=== PATIENT | female | born 1950 | race Caucasian/White ===

== ENCOUNTER 2016-04-22 19:02 | Emergency (ER) | payer OTHER ==
[~2016-04-22] VITALS: Ht 160 cm; Wt 67.4 kg
[2016-04-22 19:10] VITALS: TEMP 37; Ht 160 cm; Wt 67.4 kg
[2016-04-22] MEDS ORDERED: ACETAMINOPHEN 500 MG TAB PO STA (19:56)
[2016-04-22] MEDS ORDERED: IBUPROFEN 200 MG TAB PO STA (19:56)
--- NOTE | 2016-04-22 19:56 | EMERGENCY ROOM VISIT NOTE ---
History Report prepared by Blaire: Rosales Muñiz Under the Supervision of: Dr. Kasi Mac M.D. First contact with patient: 19:43 Chief Complaint: ILLNESS Stated Complaint: PAIN IN RIGHT SIDE OF NECK History of Present Illness The patient is a 65 year old female who presents to the Emergency Room with complaints of intermittent left sided neck pain that started early this morning. This pain is an 8/10 in severity. Yesterday, the patient noticed that her neck was stiff. She thought she may have slept wrong. The patient is currently being treated for bronchitis. She denies chest pain, shortness of breath, fevers, or any additional associated symptoms. Source of History: patient Onset: Early this morning Position: neck Symptom Intensity: 8/10 Timing: intermittent Modifying Factors (Relieving): other (None ) Associated Symptoms: No SOB, No chest pain, No fevers Review of Systems See HPI for pertinent positives & negatives. A total of 10 systems reviewed and were otherwise negative. Past Medical & Surgical Medical Problems: (1) Appendicitis Surgical Problems: (1) History of cholecystectomy Family History FH: cancer FH: gallbladder disease FH: heart disease FH: hypertension Social History Smoking Status: Former Smoker Alcohol Use: occasionally Drug Use: none Marital Status: Housing Status: lives with significant other Occupation Status: unemployed Current/Historical Medications Scheduled Atorvastatin (Lipitor), 10 MG PO QPM Dexlansoprazole (Dexilant), 30 MG PO QAM Fluoxetine (Prozac), 20 MG PO DAILY Lansoprazole (Prevacid), 30 MG PO DAILY Multivitamins/Minerals (Mvi With Minerals), 1 TAB PO DAILY Scheduled PRN Lorazepam (Ativan), 0.5 MG PO DAILY PRN for Anxiety [Sleep Aide], 2 TABS PO HS PRN for Sleep Allergies Coded Allergies: Codeine (Verified Allergy, Severe, ITCHING/IRAHETA, 04/22/16) Hydrocodone (Verified Allergy, Severe, IRAHETA, 04/22/16) Phenyltoloxamine (Verified Allergy, Severe, IRAHETA, 04/22/16) Physical Exam Vital Signs Date Time Temp Pulse Resp B/P Pulse Ox O2 Delivery O2 Flow Rate FiO2 04/22/16 22:13 66 16 161/97 95 Room Air 04/22/16 19:10 37.0 85 18 142/100 96 Room Air Physical Exam CONSTITUTIONAL: Mild painful distress. HEENT: No icterus, moist mucous membranes NECK: Moderate left sided neck tenderness. No visible abnormalities. No meningismus, trachea is midline. CARDIOVASCULAR: Regular rate, normal perfusion RESPIRATORY: Unlabored breathing. Clear to auscultation. GASTROINTESTINAL: Non-tender GENITOURINARY: No flank tenderness MUSCULOSKELETAL: Full range of motion NEUROLOGIC: No acute gross focal deficits. PSYCHIATRIC: Normal affect SKIN: Normal for ethnicity. Medical Decision & Procedures ER Provider Diagnostic Interpretation: CT results as stated below per my review and radiologist interpretation. BILATERAL CAROTID DOPPLER STUDY HISTORY: Mental status change left neck pain COMPARISON: None. TECHNIQUE: Real-time, grayscale, and color Doppler sonography of the carotid arteries was performed. Imaging reviewed in the transverse and longitudinal planes. All measurements were calculated based on NASCET criteria. FINDINGS: Antegrade flow is seen in the bilateral vertebral arteries. The brachial pressures are hemodynamically similar. Mild plaque dimension bilaterally The peak systolic velocity within the right ICA is 57. The right systolic ratio is 0.77. The peak systolic velocity within the left ICA is 49. The left systolic ratio is 0.59. IMPRESSION: No hemodynamically significant stenosis seen within the carotid arteries. Electronically signed by: Sumeet Baron M.D. 04/22/2016 9:43 PM Dictated Date/Time: 04/22/2016 9:43 PM Laboratory Results Test 04/22/16 20:15 04/22/16 20:21 Troponin I < 0.015 ng/ml (0-0.045) Bedside Hemoglobin 15.3 g/dl (12.0-16.0) Bedside Hematocrit 45 % (37-47) Bedside Sodium 142 mEq/L (135-144) Bedside Potassium 3.5 mEq/L (3.3-5.0) Bedside Chloride 103 mEq/L (101-112) Bedside Total CO2 24 mEq/l (24-31) Anion Gap 19.0 mmol/L (16-25) Bedside Blood Urea Nitrogen 15 mg/dl (7-18) Bedside Creatinine 0.6 mg/dl (0.6-1.3) Bedside Glucose (other) 122 mg/dl (70-99) Bedside Ionized Calcium (Shantanu) 1.15 mmol/l (1.12-1.32) Labs reviewed by ED physician. Medications Administered Medications (Trade) Dose Ordered Sig/Makenzie Route Start Time Stop Time Status Last Admin Dose Admin Acetaminophen (Tylenol Tab) 1,000 mg NOW STAT PO 04/22/16 19:56 04/22/16 19:59 DC 04/22/16 20:42 1,000 MG Ibuprofen (Advil Tab) 400 mg NOW STAT PO 04/22/16 19:56 04/22/16 19:59 DC 04/22/16 20:41 400 MG ECG Indication: other (Neck pain ) Rate (beats per minute): 81 Rhythm: sinus rhythm Findings: no ectopy, other (Normal axis, Non specific ST findings ) ED Course 1944: Past medical records reviewed. The patient was evaluated in room A12B. A complete history and physical examination was performed. 1955: Ordered Advil Tablet 400 mg PO, Tylenol Tablet 1,000 mg PO. 1999: Ordered Tramadol HCL 1 homepack PO. 2156: Upon reexamination the patient is resting more comfortably. I discussed results and treatment plan with the patient. She verbalizes agreement and understanding. The patient is ready for discharge. Medical Decision Differential diagnoses include but are not limited to; musculoskeletal strain, carotid dissection, atypical chest pain. 65-year-old presents into the emergency room with nontraumatic left sided mild to moderate lateral neck discomfort. Full range of motion of neck. No tenderness into facial or cranial area. No clear ameliorating or exacerbating factors. No chest pain or shortness of breath. Carotid ultrasound normal. Patient comfortable on reexamination with Tylenol Motrin prior to discharge. Impression Primary Impression: Neck pain Scribe Attestation The scribe's documentation has been prepared under my direction and personally reviewed by me in its entirety. I confirm that the note above accurately reflects all work, treatment, procedures, and medical decision making performed by me. Departure Information Dispostion Home / Self-Care Referrals Lilian Pizano M.D. (PCP) Forms HOME CARE DOCUMENTATION FORM, IMPORTANT VISIT INFORMATION, WORK / SCHOOL INSTRUCTIONS Patient Instructions My [facility] Additional Instructions Tylenol 650 mg and Motrin 600 mg every 6 hours as needed for pain
[2016-04-22] MEDS ORDERED: TRAMADOL HCL 50 MG HOME PACK PO ONE (20:00)
[2016-04-22 20:31] LABS: ISTAT CREATININE 0.6 mg/dl (0.6-1.3); ISTAT HEMOGLOBIN 15.3 g/dl (12.0-16.0); ISTAT IONIZED CALCIUM 1.15 mmol/l (1.12-1.32)
[2016-04-22] MEDS ORDERED: ATOR10TA88 PO (20:40)
[2016-04-22] MEDS ORDERED: SLEEP AIDE PO (20:40)
[2016-04-22] MEDS ORDERED: LANS30CA12 PO (20:40)
[2016-04-22] MEDS ORDERED: LORA-741 PO (20:40)
[2016-04-22] MEDS ORDERED: DEXL30CA5 PO (20:40)
[2016-04-22] MEDS ORDERED: MULT-513 PO (20:40)
[2016-04-22] MEDS ORDERED: FLUO20CA35 PO (20:40)
--- NOTE | 2016-04-22 21:45 | DIAGNOSTIC IMAGING REPORT ---
BILATERAL CAROTID DOPPLER STUDY HISTORY: Mental status change left neck pain COMPARISON: None. TECHNIQUE: Real-time, grayscale, and color Doppler sonography of the carotid arteries was performed. Imaging reviewed in the transverse and longitudinal planes. All measurements were calculated based on NASCET criteria. FINDINGS: Antegrade flow is seen in the bilateral vertebral arteries. The brachial pressures are hemodynamically similar. Mild plaque dimension bilaterally The peak systolic velocity within the right ICA is 57. The right systolic ratio is 0.77. The peak systolic velocity within the left ICA is 49. The left systolic ratio is 0.59. IMPRESSION: No hemodynamically significant stenosis seen within the carotid arteries. Electronically signed by: Sumeet Baron M.D. 04/22/2016 9:43 PM Dictated Date/Time: 04/22/2016 9:43 PM
[2016-04-22 22:13] VITALS: BP 161/97; PULSE 66; O2SAT 95
[2016-04-22] MEDS ORDERED: TRAMADOL HCL 50 MG HOME PACK ONE (22:13)
== END 2016-04-22 22:20 | disposition home or self-care (01) ==
LOC: C.EDB 19:03 → C.EDA 22:20
DX: M54.2 Cervicalgia (principal); Z82.49 Family history of ischemic heart disease and other diseases of the circulatory system; Z87.891 Personal history of nicotine dependence

== ENCOUNTER → 2016-08-23 | Outpatient (CLI) | payer OTHER ==
[~2016-08-23] MED LIST: ATOR10TA82 PO; DEXL30CA5 PO; FLUO20CA35 PO; LANS30CA12 PO; LORA-741 PO; MULT-513 PO; SLEEP AIDE PO
--- NOTE | 2016-08-23 14:15 | DIAGNOSTIC IMAGING REPORT ---
CHEST 2 VIEWS ROUTINE CLINICAL HISTORY: COUGH R05 COMPARISON STUDY: No previous studies for comparison. FINDINGS: The bones soft tissues and hemidiaphragms are normal. The cardiomediastinal silhouette is normal. The lungs are clear. The pulmonary vasculature is normal. IMPRESSION: Negative chest. Electronically signed by: Sumeet Baron M.D. 08/23/2016 2:14 PM Dictated Date/Time: 08/23/2016 2:13 PM
== END | disposition home or self-care (01) ==
LOC: C.RAD 13:45
PROVIDERS: ATTEND Family Medicine
DX: R05 Cough (principal)

== ENCOUNTER → 2016-11-15 | Outpatient (CLI) | payer OTHER ==
[~2016-11-15] MED LIST changes: -ATOR10TA82 PO; +ATOR10TA88 PO
== END | disposition home or self-care (01) ==
LOC: C.MAMM 15:36
PROVIDERS: ATTEND Family Medicine
DX: M85.852 Other specified disorders of bone density and structure, left thigh (principal); M85.832 Other specified disorders of bone density and structure, left forearm; M81.0 Age-related osteoporosis without current pathological fracture

== ENCOUNTER → 2016-11-19 | Outpatient (CLI) | payer OTHER ==
--- NOTE | 2016-11-19 16:09 | MAMMOGRAPHY REPORT ---
BILATERAL DIGITAL SCREENING MAMMOGRAM WITH CAD: 11/19/2016 CLINICAL HISTORY: Routine screening. Patient has no complaints. TECHNIQUE: Current study was also evaluated with a Computer Aided Detection (CAD) system. Bilateral CC and MLO views were obtained. COMPARISON: Comparison is made to exams dated: 06/28/2014 mammogram, 05/01/2012 mammogram, 04/26/2011 m ammogram, 04/23/2010 mammogram - [facility], 04/23/2009 mammogram, and 04/22/2008 mamm ogram. BREAST COMPOSITION: There are scattered areas of fibroglandular density in both breasts. FINDINGS: No suspicious masses, calcifications, or areas of architectural distortion are noted in ei ther breast. There has been no significant interval change compared to prior exams. Scattered bilate ral nodularity and bilateral benign-appearing calcifications are not significantly changed. IMPRESSION: ACR BI-RADS CATEGORY 2: BENIGN There is no mammographic evidence of malignancy. A 1 year screening mammogram is recommended. The pa tient will receive written notification of the results. Approximately 10% of breast cancers are not detected with mammography. A negative mammographic report should not delay biopsy if a clinically suggestive mass is present. Claudia King M.D. /:11/19/2016 13:53:12 [employer]ire Manager: Beatris Darby, [facility] letter sent: Normal 1/2 BI-RADS Code: ACR BI-RADS Category 2: Benign
== END | disposition home or self-care (01) ==
LOC: C.MAMM 12:59
PROVIDERS: ATTEND Family Medicine
DX: Z12.31 Encounter for screening mammogram for malignant neoplasm of breast (principal)

== ENCOUNTER → 2017-03-29 | Outpatient (CLI) | payer OTHER ==
[~2017-03-29] MED LIST changes: +ATOR10TA82 PO; -ATOR10TA88 PO
--- NOTE | 2017-03-29 10:45 | DIAGNOSTIC IMAGING REPORT ---
CHEST 2 VIEWS ROUTINE HISTORY: 66 years-old Female COUGH acute cough COMPARISON: Chest radiograph 08/23/2016 TECHNIQUE: PA and lateral views of the chest FINDINGS: Cardiomediastinal and hilar silhouettes are within normal limits. Atherosclerosis of the aorta. No pneumothorax, pleural effusion, focal airspace consolidation or overt pulmonary edema. The bones of the chest appear grossly intact. Partially imaged levoscoliosis of the lumbar spine. Cholecystectomy clips are noted. IMPRESSION: No acute process. The above report was generated using voice recognition software. It may contain grammatical, syntax or spelling errors. Electronically signed by: Hugh Rogers M.D. 03/29/2017 10:43 AM Dictated Date/Time: 03/29/2017 10:42 AM
== END | disposition home or self-care (01) ==
LOC: C.RAD1850 10:25
PROVIDERS: ATTEND Family Medicine
DX: R05 Cough (principal)

== ENCOUNTER → 2017-05-19 | Outpatient (CLI) | payer OTHER ==
--- NOTE | 2017-05-19 12:50 | DIAGNOSTIC IMAGING REPORT ---
(CHEST) THORAX WITHOUT CT DOSE: 371.33 mGycm HISTORY: Cough. Dyspnea. COUGH TECHNIQUE: Multiaxial CT images of the chest were performed without contrast. A dose lowering technique was utilized adhering to the principles of ALARA. COMPARISON: None. FINDINGS: The lungs are clear. The mediastinal vascular structures are within normal limits. No mediastinal or hilar lymphadenopathy. No pleural effusion or pneumothorax. Limited views of the upper abdomen demonstrate a normal liver and spleen. IMPRESSION: No acute process. The above report was generated using voice recognition software. It may contain grammatical, syntax or spelling errors. Electronically signed by: Sumeet Baron M.D. 05/19/2017 12:49 PM Dictated Date/Time: 05/19/2017 12:47 PM
== END | disposition home or self-care (01) ==
LOC: C.CTS 12:35
PROVIDERS: ATTEND Student in an Organized Health Care Education/Training Program
DX: R05 Cough (principal)